=== PATIENT | male | born 1970 | race Caucasian/White ===

== ENCOUNTER 2021-07-04 09:58 | Emergency (ER) | payer OTHER ==
[~2021-07-04 09:58] MED LIST: CLEOCIN HCL300 MG PO; IBUPROFEN600 MG PO; ZANAFLEX 4 MG TA4 MG PO
== END 2021-07-04 10:46 | disposition home or self-care (01) ==
LOC: ER1 09:58
DX: H57.89 Other specified disorders of eye and adnexa (principal); F17.200 Nicotine dependence, unspecified, uncomplicated
CPT/HCPCS: 99282